=== PATIENT | female | born 1990 | race African-American/Black ===

== ENCOUNTER 2017-03-22 09:35 | Emergency (ER) | payer MEDICAID ==
[~2017-03-22] VITALS: Ht 165.1 cm; Wt 70.0 kg
[2017-03-22] MEDS ORDERED: CYCLOBENZAPRINE 10MG TABLET PO ONE (10:45)
[2017-03-22] MEDS ORDERED: IBUPROFEN 600MG TABLET PO ONE (10:45)
[2017-03-22 10:56] VITALS: BP 98/60
== END 2017-03-22 13:38 | disposition home or self-care (01) ==
LOC: ER 11:37
DX: M25.562 Pain in left knee (principal); M79.672 Pain in left foot; M54.5 Low back pain; Z88.1 Allergy status to other antibiotic agents; V89.2XXA Person injured in unspecified motor-vehicle accident, traffic, initial encounter; Y93.89 Activity, other specified; Y92.410 Unspecified street and highway as the place of occurrence of the external cause; Y99.8 Other external cause status
CPT/HCPCS: 72110; 73562; 73630; 81025; 99284

== ENCOUNTER 2017-05-29 16:43 | Emergency (ER) | payer MEDICAID, OTHER ==
[~2017-05-29] VITALS: Ht 154.9 cm; Wt 68.0 kg
[2017-05-29 16:56] VITALS: BP 111/62
== END 2017-05-29 20:20 | disposition left against medical advice (07) ==
LOC: ER 16:43
DX: Z53.21 Procedure and treatment not carried out due to patient leaving prior to being seen by health care provider (principal)

== ENCOUNTER 2021-03-16 08:49 | Emergency (ER) | payer OTHER ==
[~2021-03-16] VITALS: Ht 154.9 cm; Wt 66.0 kg
[2021-03-16] MEDS ORDERED: SODIUM CHLORIDE 0.9% 1,000 ML IV ONE (09:15)
[2021-03-16 09:46] LABS: BASOPHILS % 0.2 % (0.0-2.0); HEMATOCRIT. 37.6 % (36.0-48.0); HEMOGLOBIN. 12.7 g/dL (12.0-16.0); LYMPHOCYTES % 33.6 % (20.0-50.0); MEAN CORPUSCULAR HEMOGLOBIN 32.2 pg (28.0-32.0); MEAN CORPUSCULAR VOLUME 95.3 fL (81.0-99.0); MEAN PLATELET VOLUME 9.3 fl (7.4-10.4); MONOCYTES % 7.2 % (2.0-8.0); PLATELET 188 x1000/uL (130-400); RED BLOOD CELL COUNT 3.94 mill/uL (4.2-5.4); RED CELL DISTRIBUTION WIDTH 13.2 % (11.6-14.6)
[2021-03-16 09:47] LABS: CLARITY URINE CLEAR (CLEAR); COLOR URINE YELLOW (YELLOW); KETONES URINE NEGATIVE (NEGATIVE); LEUKOCYTE ESTERASE URINE NEGATIVE (NEGATIVE); NITRITE URINE NEGATIVE (NEGATIVE); OCCULT BLOOD URINE NEGATIVE (NEGATIVE); PROTEIN URINE NEGATIVE (NEGATIVE); SPECIFIC GRAVITY URINE 1.007 (1.005-1.030); UROBILINOGEN URINE 0.2 E.U./dL (0.2-1.0)
[2021-03-16 09:49] LABS: CHLORIDE 107 mEq/L (98-107)
[2021-03-16 09:53] LABS: INR 1.1; PROTHROMBIN TIME 11.4 sec (9.6-11.0)
[2021-03-16 09:54] LABS: ETHANOL BLOOD < 10 mg/dL
[2021-03-16 09:57] LABS: HCG SCREEN NEGATIVE
[2021-03-16 10:14] LABS: *AMPHETAMINES SCREEN URINE NEGATIVE (NEGATIVE); *BARBITURATES SCREEN URINE NEGATIVE (NEGATIVE); *BENZODIAZEPINES SCREEN URINE NEGATIVE (NEGATIVE); METHADONE URINE SCREEN NEGATIVE (NEGATIVE)
[2021-03-16 10:15] LABS: *COCAINE SCREEN URINE NEGATIVE (NEGATIVE); OPIATES URINE SCREEN NEGATIVE (NEGATIVE); PHENCYCLIDINE URINE SCREEN NEGATIVE (NEGATIVE)
[2021-03-16 10:30] LABS: CANNABINOID URINE SCREEN PRESUMTIVE POSITIVE (NEGATIVE)
[2021-03-16] MEDS ORDERED: IBUP-2029 MT (12:45)
[2021-03-16 13:43] VITALS: BP 109/54
== END 2021-03-16 13:44 | disposition home or self-care (01) ==
LOC: ER 08:49
DX: R07.89 Other chest pain (principal); F41.9 Anxiety disorder, unspecified; F32.9 Major depressive disorder, single episode, unspecified; Z88.8 Allergy status to other drugs, medicaments and biological substances; Z87.891 Personal history of nicotine dependence
CPT/HCPCS: 36415; 71045; 80053; 80305; 80320; 81003; 83690; 84484; 84703; 85025; 85610; 87086; 93005; 96360; 99285; J7030; G0480

== ENCOUNTER 2021-04-02 11:08 | Emergency (ER) | payer OTHER ==
[~2021-04-02] VITALS: Ht 154.9 cm; Wt 66.0 kg
[~2021-04-02 11:08] MED LIST: IBUP-2029 MT
[2021-04-02] MEDS ORDERED: ACETAMINOPHEN 325MG TABLET PO ONE (11:30)
[2021-04-02] MEDS ORDERED: SODIUM CHLORIDE 0.9% 1,000 ML IV ONE (11:30)
[2021-04-02 11:41] LABS: CLARITY URINE CLEAR (CLEAR); COLOR URINE YELLOW (YELLOW); KETONES URINE TRACE (NEGATIVE); LEUKOCYTE ESTERASE URINE NEGATIVE (NEGATIVE); NITRITE URINE NEGATIVE (NEGATIVE); OCCULT BLOOD URINE 2+ (NEGATIVE); PROTEIN URINE NEGATIVE (NEGATIVE); SPECIFIC GRAVITY URINE 1.027 (1.005-1.030); UROBILINOGEN URINE 0.2 E.U./dL (0.2-1.0)
[2021-04-02 11:51] LABS: BASOPHILS % 1.3 % (0.0-2.0); HEMATOCRIT. 35.5 % (36.0-48.0); HEMOGLOBIN. 12.3 g/dL (12.0-16.0); LYMPHOCYTES % 27.4 % (20.0-50.0); MEAN CORPUSCULAR HEMOGLOBIN 32.7 pg (28.0-32.0); MEAN CORPUSCULAR VOLUME 94.3 fL (81.0-99.0); MEAN PLATELET VOLUME 8.8 fl (7.4-10.4); MONOCYTES % 10.9 % (2.0-8.0); NEUTROPHILS % 59.4 % (40.0-76.0); PLATELET 174 x1000/uL (130-400); RED BLOOD CELL COUNT 3.77 mill/uL (4.2-5.4); RED CELL DISTRIBUTION WIDTH 12.9 % (11.6-14.6)
[2021-04-02 12:01] LABS: CHLORIDE 109 mEq/L (98-107)
[2021-04-02 12:10] LABS: HCG SCREEN NEGATIVE
[2021-04-02 12:10] LABS: *AMPHETAMINES SCREEN URINE NEGATIVE (NEGATIVE); *BARBITURATES SCREEN URINE NEGATIVE (NEGATIVE); *BENZODIAZEPINES SCREEN URINE NEGATIVE (NEGATIVE); *COCAINE SCREEN URINE NEGATIVE (NEGATIVE); METHADONE URINE SCREEN NEGATIVE (NEGATIVE); OPIATES URINE SCREEN NEGATIVE (NEGATIVE)
[2021-04-02 12:13] LABS: PHENCYCLIDINE URINE SCREEN NEGATIVE (NEGATIVE)
[2021-04-02 12:48] LABS: CANNABINOID URINE SCREEN PRESUMTIVE POSITIVE (NEGATIVE)
[2021-04-02] MEDS ORDERED: NAPR-1176 MT (13:06)
[2021-04-02 13:20] VITALS: BP 112/78
== END 2021-04-02 13:25 | disposition home or self-care (01) ==
LOC: ER 12:38
DX: N94.6 Dysmenorrhea, unspecified (principal); R10.9 Unspecified abdominal pain; F12.10 Cannabis abuse, uncomplicated
CPT/HCPCS: 36415; 76830; 76856; 80053; 80305; 81003; 81025; 84703; 85025; 86850; 86900; 86901; 99284; J7030

== ENCOUNTER 2021-12-15 10:44 | Emergency (ER) | payer OTHER ==
[~2021-12-15] VITALS: Ht 154.9 cm; Wt 67.0 kg
[~2021-12-15 10:44] MED LIST changes: +NAPR-1176 MT
[2021-12-15] MEDS ORDERED: ACETAMINOPHEN 325MG TABLET PO ONE (11:00)
[2021-12-15] MEDS ORDERED: IBUPROFEN 600MG TABLET PO ONE (11:00)
[2021-12-15 11:27] VITALS: BP 108/45
[2021-12-15] MEDS ORDERED: FAMOTIDINE 20MG TABLET PO ONE (11:30)
[2021-12-15] MEDS ORDERED: NAPR-1176 MT (13:28)
[2021-12-15] MEDS ORDERED: TOPUD MT (13:28)
== END 2021-12-15 14:28 | disposition home or self-care (01) ==
LOC: ER 11:13
DX: S42.302A Unspecified fracture of shaft of humerus, left arm, initial encounter for closed fracture (principal); X58.XXXA Exposure to other specified factors, initial encounter; Y93.89 Activity, other specified; Y92.89 Other specified places as the place of occurrence of the external cause; Y99.8 Other external cause status
CPT/HCPCS: 29105; 73030; 73060; 73080; 99284

== ENCOUNTER 2023-05-01 21:42 | Emergency (ER) | payer SELFPAY ==
[~2023-05-01] VITALS: Ht 154.9 cm; Wt 70.0 kg
[~2023-05-01 21:42] MED LIST changes: +TOPUD MT
[2023-05-01 21:48] VITALS: BP 118/66; RESP 18; TEMP 99.2; O2SAT 100
[2023-05-01 21:51] VITALS: PULSE 101
[2023-05-01 23:00] LABS: EOSINOPHILS % 2.4 % (0.0-5.0); HEMATOCRIT. 35.6 % (36.0-48.0); HEMOGLOBIN. 12.1 g/dL (12.0-16.0); LYMPHOCYTES % 50.4 % (20.0-50.0); MEAN CORPUSCULAR HEMOGLOBIN 31.4 pg (28.0-32.0); MEAN CORPUSCULAR VOLUME 92.7 fL (81.0-99.0); MONOCYTES % 8.4 % (2.0-8.0); NEUTROPHILS % 36.8 % (40.0-76.0); PLATELET 190 x1000/uL (130-400); RED BLOOD CELL COUNT 3.85 mill/uL (4.2-5.4); RED CELL DISTRIBUTION WIDTH 13.3 % (11.6-14.6)
[2023-05-01 23:07] LABS: CHLORIDE 111 mEq/L (98-107)
[2023-05-01 23:10] LABS: PROTHROMBIN TIME 10.8 sec (9.6-11.0)
== END 2023-05-01 23:45 | disposition left against medical advice (07) ==
LOC: ER 21:42
DX: Z53.21 Procedure and treatment not carried out due to patient leaving prior to being seen by health care provider (principal); I49.9 Cardiac arrhythmia, unspecified
CPT/HCPCS: 36415; 71045; 80053; 84484; 85025; 93005; 99281